=== PATIENT | female | born 1955 | race Caucasian/White ===

== ENCOUNTER 2016-11-27 09:22 | Outpatient (CLI) | payer BC ==
--- NOTE | 2016-11-27 10:32 | Ultrasound Report ---
ULTRASOUND ABDOMEN LIMITED HISTORY: Cirrhosis, liver disease. FINDINGS: No comparison at this facility. The liver demonstrates mild surface nodularity and a mildly inhomogeneous echotexture. These findings suggest cirrhosis. No focal liver mass or ascites is identified. The gallbladder is not distended. There appears to be a small sludge in the gallbladder. No large shadowing gallstones. There is mild gallbladder wall thickening measuring 4.3 mm which is probably secondary to liver disease. The CBD measures 3.5 mm. The right kidney is unremarkable and measures 9.7 cm in length. The proximal aorta is normal caliber. IMPRESSION: Mild cirrhotic changes in the liver. Small amount of sludge in the gallbladder.
== END 2016-11-27 09:23 | disposition home or self-care (01) ==
LOC: US 09:22
PROVIDERS: ATTEND Internal Medicine
DX: K74.60 Unspecified cirrhosis of liver (principal)
CPT/HCPCS: 76705